=== PATIENT | male | born 1980 | race Caucasian/White ===

== ENCOUNTER 2018-03-08 10:06 | Emergency (ER) | payer BC ==
--- NOTE | 2018-03-08 11:14 | UC ---
Throat Pain/Nasal Po HPI - HPI Summary HPI Summary: Pt c/o worsening cough, nasal congestion, sinus pressure pain, fatigue and generalized malaise X 1 week. - History of Current Complaint Chief Complaint: UCRespiratory Stated Complaint: RESPIRATORY Time Seen by Provider: 03/08/18 11:08 Hx Obtained From: Patient Onset/Duration: Gradual Onset, Lasting Days - 7 Severity: Moderate Pain Intensity: 3 Cough: Nonproductive Associated Signs & Symptoms: Positive: Sinus Discomfort, Fever - Epiglottits Risk Factors Epiglottis Risk Factors: Negative - Allergies/Home Medications Allergies/Adverse Reactions: Allergies Allergy/AdvReac Type Severity Reaction Status Date / Time Sulfa (Sulfonamide Allergy Hives Verified 03/08/18 11:00 Antibiotics) Home Medications: Home Medications Ascorbic Acid/Multivit-Min [Emergen-C 1,000 mg Packet] 1 [place] PO BID PRN [History Confirmed 03/08/18] PMH/Surg Hx/FS Hx/Imm Hx Previously Healthy: Yes Other History Of: Hepatitis C - Surgical History Surgical History: Yes Surgery Procedure, Year, and Place: EAR SURG, ELBOW SURG - Family History Known Family History: Positive: Cardiac Disease - Social History Alcohol Use: Weekly Alcohol Amount: 8 Substance Use Type: Marijuana Substance Use Comment - Amount & Last Used: 1 times a day; last was 03/07/18 Smoking Status (MU): Former Smoker Have You Smoked in the Last Year: Yes - marijuana When Did the Patient Quit Smoking/Using Tobacco: 5 years Review of Systems Constitutional: Fever, Chills, Fatigue Skin: Negative Eyes: Negative ENT: Sinus Congestion, Sinus Pain/Tenderness Respiratory: Cough Cardiovascular: Negative Gastrointestinal: Negative Genitourinary: Negative Motor: Negative Neurovascular: Negative Musculoskeletal: Myalgia Neurological: Headache Psychological: Negative Is Patient Immunocompromised?: No All Other Systems Reviewed And Are Negative: Yes Physical Exam Triage Information Reviewed: Yes Appearance: Ill-Appearing Vital Signs: Initial Vital Signs Temp 98 F 03/08/18 10:47 Pulse 73 03/08/18 10:47 Resp 20 03/08/18 10:47 BP 122/87 03/08/18 10:47 Pulse Ox 97 03/08/18 10:47 Vital Signs Reviewed: Yes Eye Exam: Normal ENT Exam: Other ENT: Positive: Nasal congestion, Sinus tenderness Dental Exam: Normal Neck exam: Normal Respiratory Exam: Normal Cardiovascular Exam: Normal Musculoskeletal Exam: Normal Neurological Exam: Normal Psychological Exam: Normal Skin Exam: Normal Throat Pain/Nasal Course/Dx - Differential Dx/Diagnosis Differential Diagnosis/HQI/PQRI: Influenza, Sinusitis, Tonsillitis, Other - bronchitis Provider Diagnoses: sinusitis Discharge - Sign-Out/Discharge Documenting (check all that apply): Discharge - Discharge Plan Condition: Stable Disposition: HOME Prescriptions: Amoxicillin PO (*) [Amoxicillin 875 MG (*)] 875 mg PO Q12H #20 tab Fexofenadine/Pseudoephedrine [Candi-D 24 Hour Tablet] 1 each PO DAILY #10 tab Patient Education Materials: Sinusitis (ED) Forms: *Work Release Referrals: JESSE Roland [Primary Care Provider] - - Billing Disposition and Condition Condition: STABLE Disposition: HOME
== END 2018-03-08 11:23 | disposition home or self-care (01) ==
LOC: UCCORT 10:06
DX: J32.9 Chronic sinusitis, unspecified (principal); Z88.2 Allergy status to sulfonamides; Z87.891 Personal history of nicotine dependence
CPT/HCPCS: 99212; G0463